=== PATIENT | male | born 1960 | race Hispanic/Latino ===

== ENCOUNTER 2018-01-12 01:38 | Emergency (ER) | payer BC, MEDICARE ==
[~2018-01-12] VITALS: Ht 162.6 cm; Wt 133.8 kg
== END 2018-01-12 02:54 | disposition home or self-care (01) ==
LOC: EDBD 01:38 → ER 01:38
DX: B02.9 Zoster without complications (principal); M25.512 Pain in left shoulder; I10 Essential (primary) hypertension; E11.9 Type 2 diabetes mellitus without complications; J44.9 Chronic obstructive pulmonary disease, unspecified; Z86.73 Personal history of transient ischemic attack (TIA), and cerebral infarction without residual deficits
CPT/HCPCS: 99282